=== PATIENT | male | born 1995 | race Two or more races ===

== ENCOUNTER 2016-12-12 15:31 | Emergency (ER) | payer OTHER ==
[2016-12-12 15:46] VITALS: BP 144/73
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
== END 2016-12-12 18:50 | disposition home or self-care (01) ==
LOC: ER 15:31
DX: R09.89 Other specified symptoms and signs involving the circulatory and respiratory systems (principal); V43.62XA Car passenger injured in collision with other type car in traffic accident, initial encounter
CPT/HCPCS: 99283